=== PATIENT | male | born 1955 | race Caucasian/White ===

== ENCOUNTER 2018-09-21 06:49 | Day surgery (SDC) | payer OTHER ==
[2018-09-19 13:53] VITALS: BMI 29.8
[2018-09-21] MEDS ORDERED: LIDOCAINE 1% 20 ML VIAL (10MG/ML) FOR IV START INTRADERMA PRN (06:52)
[2018-09-21] MEDS ORDERED: MIDAZOLAM (PF) 2 MG/2 ML VIAL IV PRN (06:52)
[2018-09-21] MEDS ORDERED: LACTATED RINGERS 1,000 ML IV SCH (06:52)
[2018-09-21 07:16] VITALS: TEMP 98.9
[2018-09-21] MEDS ORDERED: LACTATED RINGERS 1,000 ML IV ONE ×2 (07:21)
[2018-09-21] MEDS ORDERED: LIDOCAINE 1% INJ 10MG/ML (20 ML MDV) ONE (07:35)
[2018-09-21] MEDS ORDERED: PROPOFOL 10 MG/ML 20 ML VIAL IV ONE (07:35)
--- NOTE | 2018-09-21 08:28 | P.OP ---
Date of Procedure: 09/21/18 Preoperative Diagnosis: Hx polyps, screening Postoperative Diagnosis: Small polyp in the splenic flexure Procedure(s) Performed: Colonoscopy with polypectomy Anesthesia: MAC Surgeon: Jj Brooke Estimated Blood Loss (ml): 0 Condition: stable Disposition: floor Description of Procedure: Patient was brought to the Endo suite remained in the left lateral decubitus position and sedation per department of anesthesia timeout performed correct patient correct procedure correct site was verified rectal exam was performed no gross abnormalities are noted scope was passed from the rectum to the cecum with ease and slowly withdrawn being sure to visualize all ennis of the colon on the way out there was a very small sessile polyp noted this was snared and unable to be completely retrieved for pathologies due to its size it went through the suction container system. It was completely removed however. This was at the splenic flexure. There was no other abnormalities noted scope was retroflexed in the rectum no other abnormalities were noted scope was withdrawn patient artery procedure well no apparent complications
[2018-09-21 08:29] VITALS: RESP 16
[2018-09-21 08:59] VITALS: BP 110/69; PULSE 60
== END 2018-09-21 09:30 | disposition home or self-care (01) ==
LOC: ORWHC2ENDO 06:49
PROVIDERS: ATTEND Student in an Organized Health Care Education/Training Program
DX: Z12.11 Encounter for screening for malignant neoplasm of colon (principal); K63.5 Polyp of colon; E78.5 Hyperlipidemia, unspecified; J45.909 Unspecified asthma, uncomplicated; K21.9 Gastro-esophageal reflux disease without esophagitis; Z79.82 Long term (current) use of aspirin; Z79.899 Other long term (current) drug therapy
CPT/HCPCS: 45385; J2001; J2704

== ENCOUNTER 2020-05-30 09:26 | Day surgery (SDC) | payer OTHER ==
[2020-05-28 14:34] VITALS: BMI 30.8
[~2020-05-30 09:26] MED LIST: ALPRAZolam 0.25 MG TAB PO PRN; ALPRAZolam 0.5 MG TAB PO PRN; ASPIRIN 325 MG TAB PO STA; ATORVASTATIN 80 MG TAB PO STA; NITROGLYCERIN SL TABS 0.4 MG TAB SUBLINGUAL PRN; SODIUM CHLORIDE 0.9% 1,000 ML in EMPTY BAG 1 BAG IV ONE
[2020-05-30 10:04] VITALS: PULSE 64; RESP 16; TEMP 98.4
[2020-05-30] MEDS ORDERED: SODIUM CHLORIDE 0.9% 1,000 ML IV ONE (10:04)
[2020-05-30] MEDS: MIDAZOLAM 2 MG/2 ML VIAL IV ONE ×2 (11:09→11:14)
[2020-05-30] MEDS ORDERED: NITROGLYCERIN SL TABS 0.4 MG TAB SUBLINGUAL ONE (11:10)
[2020-05-30] MEDS ORDERED: VERAPAMIL SYRINGE (5 MG/10 ML) INTRAARTER ONE (11:18)
[2020-05-30] MEDS ORDERED: IOPAMIDOL-370 100ML BTL INJ ONE ×2 (11:33→11:59)
[2020-05-30] MEDS ORDERED: BIVALIRUDIN 250 MG in SODIUM CHLORIDE 0.9% 50 ML IV ONE (11:40)
[2020-05-30] MEDS ORDERED: BIVALIRUDIN BOLUS 250 MG/50 ML IV ONE (11:40)
[2020-05-30] MEDS: NITROGLYCERIN 1000MCG/10ML SYRINGE INTRACORON ONE ×2 (11:50→11:56)
[2020-05-30] MEDS ORDERED: CLOPIDOGREL 75 MG TAB PO ONE (12:05)
[2020-05-30] MEDS ORDERED: SODIUM CHLORIDE 0.9% 1,000 ML IV SCH (12:17)
--- NOTE | 2020-05-30 12:55 | CC ---
CARDIAC CATHETERIZATION REPORT DATE OF SERVICE: 05/30/2020 PROCEDURE: 1. Left heart catheterization and coronary angiography. 2. PTCA and stenting of mid circumflex with a drug-eluting stent. PERFORMED BY: Dr. Baldomero Last. Moderate conscious sedation time was 48 minutes. Patient was administered Versed, oxygen saturation, hemodynamics and EKG were monitored closely. CLINICAL INFORMATION: Mr. Geraldo Ferreira is a 65-year-old gentleman with a history of hypertension, hypercholesterolemia and family history of CAD, who has been having symptoms of angina and had a stress test which revealed inferolateral reversible defect suggestive of ischemia with preserved ejection fraction. He was advised cardiac catheterization after due discussion regarding risks, benefits, and options. PROCEDURE NOTE: Under local anesthesia and strict aseptic precautions, a 6-Slovak introducer was placed in the right radial artery. Using a JL3.5 and JR4 catheters, I performed coronary angiography and the same right Vicky catheter was used to check LV pressures. LV gram was not performed. Following the procedure, I noted that he had a significant lesion in the mid circumflex and a chronic total occlusion of mid RCA. I performed intervention of the circumflex in the same setting with excellent results. Following the procedure, the sheath was taken out and a TR band applied as per protocol with the saturation the fingers of the right hand of 98%. CARDIAC CATHETERIZATION FINDINGS: Left ventricular end-diastolic pressure was 10 mmHg without any gradient across the aortic valve. CORONARY ANGIOGRAPHY FINDINGS: RIGHT CORONARY ARTERY: Technically, a dominant vessel, has about a 30% to 40% mid lesion, tortuous, after the origin of a good-sized acute marginal branch there is a total occlusion which with late reconstitution and distal bifurcation is also evident. It appears that this is a chronic total occlusion, but late filling is noted in multiple views. The distal RCA appears to be a fair caliber vessel, but there is a long area of discontinuity. The RCA therefore in the midportion has a chronic total occlusion with late filling. LEFT MAIN CORONARY ARTERY: This is a left main coronary artery, short patent vessel that immediately bifurcates into LAD and circumflex. No significant disease in the left main. LEFT ANTERIOR DESCENDING CORONARY ARTERY: Good caliber vessel, extends along the anterior wall, gives off septal and diagonal branches. In the midportion, there is about a 35% to 40% narrowing in the LAD. Mild to moderate calcification. No significant disease. It runs all the way to the apex. It gives off diagonal branches, particularly the second diagonal is of a good caliber and distribution. No significant disease in the LAD that would require any intervention at this time. The good-sized diagonal branch that comes off in the midportion is quite large and supplies a sizable amount of myocardium. LEFT POSTERIOR CIRCUMFLEX CORONARY ARTERY: Technically, this is a nondominant vessel but has a large branch that comes off and gives off what seems to be a PLV or a PDA distally. In the proximal portion, gives off a left atrial circumflex and there is a calcification mid lesion is about 85%-90%. In the ostium of the circumflex as it comes off from the left main, there is the plaque and the plaque is about 45%-50% in multiple projections. But the mid lesion is 85%-90 % and distal branch that continues beyond is large in caliber and distribution. It also seems to provide some collaterals to the distal branches of RCA. The circumflex therefore is nondominant good caliber, good distribution proximal 45% lesion at the ostium and a mid lesion of 85%-90%. Left ventriculogram was not performed. FINAL IMPRESSION: This patient has a total occlusion of mid RCA dominant vessel and 85% mid circumflex with a 40% to 45% proximal circumflex and mid LAD has a 35% to 40% lesion. Filling pressures are normal. No gradient across aortic valve and LV-gram was not performed. RECOMMENDATIONS: I recommended intervention of the mid circumflex and proceeded to perform this in the same setting. We will address the RCA at a later date. Probably will require a METROLOGY TECHNICIAN intervention. 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 A run-through wire to cross the lesion. A 3.0 caliber 15 NC balloon to pre-dilate the lesion and then used a 3.5 caliber 18 mm long Xience stent and deployed this at 14 atmospheres. Patient did not have chest pain or EKG changes. Excellent angiographic result was achieved. He received Angiomax bolus and infusion and he also received 600 mg of Plavix. Excellent angiographic result without complication was achieved. The sheath was taken out and TR band applied with good saturation of the fingers of the right hand. Results were discussed with the patient. I also spoke to his father by phone. I expect he will be discharged later on today on dual antiplatelet therapy. Excellent angiographic result without complication was achieved. MMSUSANL / IJN: [id number] /
[2020-05-30] MEDS ORDERED: ALBUTEROL HFA INHALER INHALATION PRN (13:27)
[2020-05-30 18:37] VITALS: BP 132/64
[2020-05-31] MEDS ORDERED: ASPIRIN 81 MG PO SCH (09:00)
[2020-05-31] MEDS ORDERED: LOSARTAN 50 MG TAB PO SCH (09:00)
[2020-05-31] MEDS ORDERED: ATORVASTATIN 80 MG TAB PO SCH (09:00)
[2020-05-31] MEDS ORDERED: CHOLECALCIFEROL 1,000 UNIT TAB PO SCH (09:00)
[2020-05-31] MEDS ORDERED: METOPROLOL TARTRATE 12.5 MG TAB PO SCH (09:00)
[2020-05-31] MEDS ORDERED: MULTIVITAMINS, THERA 1 EACH TAB PO SCH (09:00)
== END 2020-05-30 18:31 | disposition home or self-care (01) ==
LOC: CATHCVL 09:26
PROVIDERS: ATTEND Internal Medicine Interventional Cardiology
DX: I25.110 Atherosclerotic heart disease of native coronary artery with unstable angina pectoris (principal); I25.82 Chronic total occlusion of coronary artery; I77.1 Stricture of artery; R94.39 Abnormal result of other cardiovascular function study; R06.02 Shortness of breath; R07.9 Chest pain, unspecified; I10 Essential (primary) hypertension; J45.909 Unspecified asthma, uncomplicated; E78.2 Mixed hyperlipidemia; E66.3 Overweight; Z79.899 Other long term (current) drug therapy; Z79.82 Long term (current) use of aspirin; Z68.31 Body mass index [BMI] 31.0-31.9, adult; Z82.49 Family history of ischemic heart disease and other diseases of the circulatory system
CPT/HCPCS: 93458; C9600; C1887; C1769 ×3; C1725; C1874; C1894; J2250; J0583; J1644; Q9967

== ENCOUNTER → 2021-04-16 | Outpatient (CLI) | payer MEDICARE ==
[2021-04-16 15:25] LABS: Basophils # (A) 0.09 X 10*3/uL (0.00-0.10); Basophils % (A) 1.4 %; Eosinophils # (A) 0.46 X 10*3/uL (0.04-0.35); Eosinophils % (A) 7.4 %; HCT 42.3 % (39.6-50.0); HGB 13.8 g/dL (13.0-17.0); Lymphocytes # (A) 1.89 X 10*3/uL (0.90-5.00); Lymphocytes % (A) 30.4 %; MCH 30.4 pg (27.0-32.0); MCHC 32.6 g/dL (32.0-37.0); MCV 93.2 fL (80.0-97.0); Mean Platelet Volume 10.9 fL (9.5-12.2); Monocytes # (A) 0.51 X 10*3/uL (0.20-1.00); Monocytes % (A) 8.2 %; Neutrophils # (A) 3.25 X 10*3/uL (1.80-7.70); Neutrophils % (A) 52.4 %; Platelet Count 236 X 10*3/uL (140-440); RBC 4.54 X 10*6/uL (4.40-5.60); RDW 13.1 % (11.5-14.5); WBC 6.21 X 10*3/uL (4.50-10.00)
[2021-04-16 17:36] LABS: African American GFR (CKD) 91.1 (60.0-200.0); Albumin 4.4 g/dL (3.80-4.90); Albumin/Globulin Ratio 2.32 (1.60-3.17); Anion Gap 8.7 mmol/L (4.00-12.00); Calcium 9.1 mg/dL (8.7-10.3); Carbon Dioxide 28.3 mmol/L (21.6-31.8); Chol/HDL Ratio 2.46; Globulin 1.9 g/dL (1.6-3.3); LDL Cholesterol,Calculated 63.2 mg/dL (0.0-131.0); Non-African American GFR(CKD) 78.6 (60.0-200.0); Potassium 4.3 mmol/L (3.5-5.5); Total Protein 6.3 g/dL (6.2-8.2); VLDL Calculation 12.8 mg/dL (5.00-40.00)
[2021-04-16 17:44] LABS: PSA Annual Screen 2.4 ng/mL (0.0-4.0)
== END | disposition home or self-care (01) ==
LOC: LABWHC1 08:42
PROVIDERS: ATTEND Internal Medicine
DX: Z00.00 Encounter for general adult medical examination without abnormal findings (principal); Z11.59 Encounter for screening for other viral diseases
CPT/HCPCS: 86803; 80061; 80053; 84443; 85025; 36415; G0103

== ENCOUNTER → 2021-05-20 | Outpatient (CLI) | payer MEDICARE ==
--- NOTE | 2021-05-20 07:35 | US ---
EXAMINATION TYPE: US duplex aorta DATE OF EXAM: 05/20/2021 COMPARISON: NONE CLINICAL HISTORY: Z13.6 AAA. Screening for AAA. EXAM MEASUREMENTS: Limited due to overlying bowel gas. Abdominal Aorta: Proximal: 2.4 x 2.4 cm. Mid: 1.9 x 1.8 cm. Distal: 1.3 x 1.4 cm. Bifurcation: Obscured by gas. Incidental finding: septated anechoic area seen within the left lobe of the liver: 7.3 x 6.9 x 7.0 cm. IMPRESSION: No evidence for abdominal aortic aneurysm.
== END | disposition home or self-care (01) ==
LOC: RADUSWWP 06:58
PROVIDERS: ATTEND Internal Medicine
DX: Z13.6 Encounter for screening for cardiovascular disorders (principal)
CPT/HCPCS: 93979

== ENCOUNTER → 2021-05-20 | Outpatient (CLI) | payer MEDICARE ==
[2021-05-20 10:49] LABS: HCT 40.5 % (39.6-50.0); HGB 12.8 g/dL (13.0-17.0); MCH 29.3 pg (27.0-32.0); MCHC 31.6 g/dL (32.0-37.0); MCV 92.7 fL (80.0-97.0); Mean Platelet Volume 10.4 fL (9.5-12.2); Platelet Count 230 X 10*3/uL (140-440); RBC 4.37 X 10*6/uL (4.40-5.60); WBC 6.29 X 10*3/uL (4.50-10.00)
[2021-05-20 11:39] LABS: INR 0.96 (0.90-1.11); Prothrombin Time 10.5 sec (9.9-11.9)
[2021-05-21 04:40] LABS: Magnesium 2.1 mg/dL (1.5-2.4)
[2021-05-21 10:04] LABS: African American GFR (CKD) 113.9 (60.0-200.0); Anion Gap 10.7 mmol/L (4.00-12.00); BUN/Creat Ratio 21.29 Ratio (12.00-20.00); Blood Urea Nitrogen 15.2 mg/dL (9.0-27.0); Calcium 8.9 mg/dL (8.7-10.3); Carbon Dioxide 25.8 mmol/L (21.6-31.8); Non-African American GFR(CKD) 98.2 (60.0-200.0); Potassium 4.4 mmol/L (3.5-5.5)
== END | disposition home or self-care (01) ==
LOC: LABWHC1 07:25
PROVIDERS: ATTEND Internal Medicine Interventional Cardiology
DX: I25.110 Atherosclerotic heart disease of native coronary artery with unstable angina pectoris (principal)
CPT/HCPCS: 36415; 80048; 83735; 85027; 85610

== ENCOUNTER → 2021-05-28 | Outpatient (CLI) | payer MEDICARE | END | disposition home or self-care (01) | LOC: LABWHC1 07:32 | PROVIDERS: ATTEND Internal Medicine Interventional Cardiology | DX: Z01.812 Encounter for preprocedural laboratory examination (principal); Z20.822 Contact with and (suspected) exposure to COVID-19 | CPT/HCPCS: U0003; U0005 ==

== ENCOUNTER → 2021-06-17 | Outpatient (CLI) | payer MEDICARE ==
[2021-06-17 16:58] LABS: INR 0.98 (0.90-1.11); Prothrombin Time 10.7 sec (9.9-11.9)
[2021-06-17 17:55] LABS: HCT 41.5 % (39.6-50.0); HGB 12.9 g/dL (13.0-17.0); MCH 29.3 pg (27.0-32.0); MCHC 31.1 g/dL (32.0-37.0); MCV 94.3 fL (80.0-97.0); Mean Platelet Volume 10.5 fL (9.5-12.2); Platelet Count 264 X 10*3/uL (140-440); RDW 13.2 % (11.5-14.5); WBC 7.95 X 10*3/uL (4.50-10.00)
[2021-06-17 18:55] LABS: African American GFR (CKD) 105.9 (60.0-200.0); Anion Gap 9.1 mmol/L (4.00-12.00); BUN/Creat Ratio 26.67 Ratio (12.00-20.00); Blood Urea Nitrogen 22.7 mg/dL (9.0-27.0); Calcium 9.6 mg/dL (8.7-10.3); Carbon Dioxide 29.1 mmol/L (21.6-31.8); Magnesium 2.1 mg/dL (1.5-2.4); Non-African American GFR(CKD) 91.4 (60.0-200.0); Potassium 4.5 mmol/L (3.5-5.5)
== END | disposition home or self-care (01) ==
LOC: LABWHC1 08:19
PROVIDERS: ATTEND Internal Medicine Interventional Cardiology
DX: I25.110 Atherosclerotic heart disease of native coronary artery with unstable angina pectoris (principal)
CPT/HCPCS: 36415; 80048; 83735; 85027; 85610

== ENCOUNTER → 2021-06-22 | Outpatient (CLI) | payer MEDICARE ==
--- NOTE | 2021-06-22 09:19 | CT ---
EXAMINATION TYPE: CT abdomen wo/w con DATE OF EXAM: 06/22/2021 COMPARISON: Correlation ultrasound 05/20/2021 HISTORY: 66-year-old male K76.9, liver lesion, abnormal liver US TECHNIQUE: Contiguous axial scanning of the abdomen before and after administration of 100 ml Isovue 300 IV contrast. Delayed images through the kidneys and coronal/sagittal reconstructions performed. CT DLP: 2007.3 mGycm Automated exposure control for dose reduction was used. FINDINGS: Heart normal size without pericardial effusion. Three-vessel coronary artery calcifications are prese nt in the remarkable for coronary artery disease. Some strandy atelectasis in the lower lungs without pleural effusion. Numerous hepatic cysts are present. Some of these show lobulated contours. No suspicious enhancing in ternal nodularity is identified. Largest measures up to 6.7 cm left liver lobe and 5.2 cm right liver lobe. No biliary ductal dilatation. Portal venous system is patent. Gallbladder, adrenal glands, kidneys with lobulated renal contours, spleen with hilar splenule, and p ancreas within normal limits. Mild to moderate atherosclerotic plaque and calcification within the infrarenal abdominal aorta. No dilated small bowel, free fluid, or free air. No mesenteric or retroperitoneal lymphadenopathy. Normal appendix. Mild overall stool burden. No pericolonic inflammatory change. The pelvis is not imaged. Bones: Moderate degenerative disc disease L5-S1 and mild elsewhere throughout the lumbar spine. IMPRESSION: 1. NUMEROUS HEPATIC CYSTS THROUGHOUT THE LIVER, LARGEST MEASURING UP TO 6.7 CM ON THE LEFT AND 5.2 CM ON THE RIGHT. THESE APPEAR TO REPRESENT BENIGN CYSTS. 2. NO BILIARY DUCTAL DILATATION. 3. CAD WITH 3 VESSEL CORONARY ARTERY CALCIFICATIONS.
== END | disposition home or self-care (01) ==
LOC: RADCTMAIN 07:59
PROVIDERS: ATTEND Internal Medicine
DX: K76.89 Other specified diseases of liver (principal); I25.10 Atherosclerotic heart disease of native coronary artery without angina pectoris
CPT/HCPCS: 74170; Q9967

== ENCOUNTER 2023-08-19 12:14 | Day surgery (SDC) | payer MEDICARE ==
[2023-08-19] MEDS: LACTATED RINGERS 1,000 ML IV SCH ×2 (13:26→14:01)
[2023-08-19 13:35] VITALS: TEMP 97.9
[2023-08-19] MEDS ORDERED: PROPOFOL 10 MG/ML 20 ML VIAL IV ONE (14:04)
--- NOTE | 2023-08-19 14:19 | P.PCN ---
Date of Procedure: 08/19/23 Procedure(s) Performed: BRIEF HISTORY: Patient is a 68-year-old pleasant white male scheduled for an elective colonoscopy as a part of evaluation of prior history of colon polyps. Last colonoscopy was 5 years ago. PROCEDURE PERFORMED: Colonoscopy with snare polypectomy. PREOPERATIVE DIAGNOSIS: History of colon polyps. IV sedation per Anesthesia. PROCEDURE: After informed consent was obtained, the patient, was brought into the endoscopy unit. IV sedation was administered by Anesthesia under continuous monitoring. Digital rectal examination was normal. Initially the Olympus CF-160 flexible video colonoscope was then inserted in the rectum, gradually advanced into the cecum without any difficulty. Careful examination was performed as the scope was gradually being withdrawn. Ileocecal valve and the appendiceal orifice were visualized and appeared normal. Prep was excellent. Mucosa of the cecum, ascending colon, appeared normal. In the proximal transverse colon there was a 6 minute a polyp that was removed by cold snare polypectomy. Rest of the transverse colon, descending colon, appeared normal. In the descending colon there was a 4 mm sessile polyp removed by cold snare polypectomy. Scattered left sided diverticulosis seen. sigmoid colon, and rectum appeared normal. Retroflexion was performed in the rectum and no lesions were seen. The patient tolerated the procedure well. IMPRESSION: 6 mm proximal transverse colon polyp status post cold snare polypectomy 4 mm descending colon polyp status post polypectomy Scattered sigmoid diverticulosis RECOMMENDATIONS: Findings of this examination were discussed with the patient as well as his family. He was advised to follow with the biopsy results. If the biopsy reveals adenoma he can have a repeat colonoscopy in 5 years..
[2023-08-19 14:47] VITALS: BP 128/68; PULSE 62; RESP 16
== END 2023-08-19 15:38 | disposition home or self-care (01) ==
LOC: ORWHC2ENDO 12:14
PROVIDERS: ATTEND Internal Medicine Gastroenterology
DX: Z12.11 Encounter for screening for malignant neoplasm of colon (principal); D12.4 Benign neoplasm of descending colon; K57.30 Diverticulosis of large intestine without perforation or abscess without bleeding; Z86.010 Personal history of colon polyps
CPT/HCPCS: 88305; 45385; J2704

== ENCOUNTER → 2024-05-28 | Outpatient (CLI) | payer MEDICARE ==
--- NOTE | 2024-05-28 11:42 | US ---
EXAMINATION TYPE: US liver DATE OF EXAM: 05/28/2024 COMPARISON: CT 2020 CLINICAL INDICATION: Male, 69 years old with history of E80.7 DISORDER OF BILIRUBIN; TECHNIQUE: Grayscale and color Doppler imaging of the right upper quadrant was performed. FINDINGS: EXAM MEASUREMENTS: Liver Length: 19.0 cm Gallbladder Wall: 0.2 cm CBD: 0.2 cm Right Kidney: 9.1 x 5.0 x 5.1 cm Pancreas: visualized portions wnl, limited by overlying midline bowel gas Liver: enlarged, multiple cysts throughout with largest in left lobe measuring 9.7 x 6.2 x 10.1cm Gallbladder: wnl Evidence for sonographic Rodríguez's sign: no CBD: visualized portions wnl, limited by overlying bowel gas Right Kidney: wnl IMPRESSION: Hepatomegaly with multiple hepatic cysts. Liver is coarsened consider underlying hepatoce llular disease. [facility], Workstation: [facility], 05/28/2024 11:40 AM
== END | disposition home or self-care (01) ==
LOC: RADUSWWP 07:34
PROVIDERS: ATTEND Internal Medicine
DX: E80.7 Disorder of bilirubin metabolism, unspecified
CPT/HCPCS: 76705

== ENCOUNTER → 2024-05-30 | Outpatient (CLI) | payer MEDICARE ==
[2024-05-30 15:40] LABS: ALT 28 U/L (10-49); AST 29 U/L (14-35); Albumin 4.5 g/dL (3.8-4.9); Albumin/Globulin Ratio 2.37 Ratio (1.60-3.17); Alkaline Phosphatase 63 U/L (41-126); BUN/Creat Ratio 26.67 Ratio (12.00-20.00); Calcium 9.4 mg/dL (8.7-10.3); Carbon Dioxide 26.5 mmol/L (21.6-31.8); Chloride 102 mmol/L (96-109); Globulin 1.9 g/dL (1.6-3.3); Glucose 111 mg/dL (70-110); Iron 53 UG/DL (65-175); Potassium 4.4 mmol/L (3.5-5.5); Sodium 140 mmol/L (135-145); Total Bilirubin 1.6 mg/dL (0.3-1.2); Total Iron Binding Capacity 342 UG/DL (228-460); Total Protein 6.4 g/dL (6.2-8.2)
[2024-05-30 15:46] LABS: Hepatitis A Antibody IgM Nonreactive (Nonreactive); Hepatitis B Core IgM Nonreactive (Nonreactive); Hepatitis B Surface Antigen Nonreactive (Nonreactive); Hepatitis C IgG Antibody Nonreactive (Nonreactive)
[2024-05-30 16:09] LABS: Ceruloplasmin 20.9 mg/dL (20.0-60.0)
[2024-05-31 04:05] LABS: EBV - VCA IgM <10.0 U/mL (<36.0)
[2024-05-31 12:15] LABS: Smooth Muscle Antibody 8 UNITS (<20)
== END | disposition home or self-care (01) ==
LOC: LABWHC1 08:48
PROVIDERS: ATTEND Internal Medicine
DX: E80.6 Other disorders of bilirubin metabolism (principal)
CPT/HCPCS: 36415; 80053; 80074; 82103; 82248; 82390; 82525; 83516; 83540; 83550; 86038; 86645; 86665

== ENCOUNTER → 2024-11-02 | Outpatient (CLI) | payer MEDICARE ==
--- NOTE | 2024-11-02 09:08 | XR ---
EXAMINATION TYPE: XR Hip Complete RT DATE OF EXAM: 11/02/2024 8:25 AM COMPARISON: None CLINICAL INDICATION: Male, 69 years old with history of M25.551 HIP PAIN; PHH, pain TECHNIQUE: XR Hip Complete RT; Frontal and lateral views FINDINGS: No evidence for acute process, joint dislocation or significant soft tissue swelling. Osteo phyte formation of the superior acetabulum of the hip. There is mild joint space narrowing. IMPRESSION: 1. No evidence for acute process. 2. Moderate hip osteoarthrosis. [facility], , 11/02/2024 9:06 AM
[2024-11-02 11:02] LABS: ALT 30 U/L (10-49); AST 24 U/L (14-35); Albumin 4.2 g/dL (3.8-4.9); Albumin/Globulin Ratio 2.21 Ratio (1.60-3.17); Alkaline Phosphatase 64 U/L (41-126); BUN/Creat Ratio 25.33 Ratio (12.00-20.00); Blood Urea Nitrogen 22.8 mg/dL (9.0-27.0); Calcium 9.2 mg/dL (8.7-10.3); Carbon Dioxide 30.3 mmol/L (21.6-31.8); Chloride 102 mmol/L (96-109); Chol/HDL Ratio 2.23 Ratio; Globulin 1.9 g/dL (1.6-3.3); Glucose 110 mg/dL (70-110); LDL Cholesterol,Calculated 59.1 mg/dL (0.0-131.0); Potassium 4.6 mmol/L (3.5-5.5); Sodium 139 mmol/L (135-145); Total Bilirubin 1.3 mg/dL (0.3-1.2); Total Protein 6.1 g/dL (6.2-8.2); VLDL Calculation 13.58 mg/dL (5.00-40.00)
== END | disposition home or self-care (01) ==
LOC: LABWHC1 08:01
PROVIDERS: ATTEND Internal Medicine
DX: I10 Essential (primary) hypertension (principal); I25.10 Atherosclerotic heart disease of native coronary artery without angina pectoris; M16.11 Unilateral primary osteoarthritis, right hip; R05.1 Acute cough
CPT/HCPCS: 36415; 73502; 80053; 80061; 86710